=== PATIENT | female | born 1995 | race American Indian/Alaskan Native ===

== ENCOUNTER 2021-03-15 13:15 | Emergency (ER) | payer MEDICAID ==
[2021-03-15] MEDS ORDERED: miSOPROStol 25 MCG TAB VG ONE (15:01)
[2021-03-15 15:02] LABS: Basophils # (Auto) 0.1 K/mm3 (0.0-0.1); Basophils % (Auto) 0.6 % (0.0-1.8); Eosinophils # (Auto) 0.1 K/mm3 (0.0-0.4); Eosinophils % (Auto) 0.9 % (0.0-4.3); Hematocrit 30.6 % (30.3-42.9); Hemoglobin 10.7 gm/dl (10.1-14.3); Lymphocytes % (Auto) 11.6 % (13.4-35.0); Mean Corpuscular HGB Conc 35 % (30-34); Mean Corpuscular Volume 89 fl (79-97); Monocytes # (Auto) 0.4 K/mm3 (0.0-0.8); Monocytes % (Auto) 4.8 % (0.0-7.3); Platelet Count 301 K/mm3 (140-440); Red Blood Count 3.44 M/mm3 (3.65-5.03); Red Cell Distribution Width 14.4 % (13.2-15.2)
[2021-03-15] MEDS ORDERED: SODIUM CHLORIDE 0.9% 500 ML 500 ML IV ONE (15:04)
[2021-03-15 15:12] LABS: INR 0.99 (0.87-1.13)
[2021-03-15 15:13] LABS: Partial Thromboplastin Time 27.5 Sec. (24.2-36.6)
[2021-03-15 15:14] LABS: Alanine Aminotransferase 8 units/L (7-56); Albumin 4.1 g/dL (3.9-5); Blood Urea Nitrogen 19 mg/dL (7-17); Calcium 8.8 mg/dL (8.4-10.2); Hemolysis Index 3
[2021-03-15 15:17] LABS: BUN/Creatinine Ratio 32
[2021-03-15] MEDS ORDERED: miSOPROStol 200 MCG TAB VG ONE ×2 (16:00→21:00)
--- NOTE | 2021-03-15 16:06 | Emergency Department Report ---
ED General Adult HPI - General Chief complaint: Vaginal Bleeding Stated complaint: BLEEDING Time Seen by Provider: 03/15/21 14:21 Source: patient Mode of arrival: Wheelchair Limitations: No Limitations - History of Present Illness Initial comments: Patient is a 25-year-old female presents emergency room complaints of heavy vaginal bleeding that began early this morning. She states that she is having to change her pad approximately 5-6 times in an hour. Patient states that she had a medical pill on 03/02/2021. She states that this morning she went to follow-up for repeat ultrasound, she states while she was there she continued to have heavy bleeding and then began to feel lightheaded and was near syncope. She states that she was advised to report to the emergency room. She denies any abdominal pain, fever, vomiting, diarrhea, urinary symptoms, abnormal vaginal discharge. She states that she was approximately 7 weeks at the time of . No past medical history. No allergies medications. /P: 2/A: 1 - Related Data Previous Rx's Medication Instructions Recorded Last Taken Type Ibuprofen [Motrin 400 MG tab] 400 mg PO Q8H PRN #20 tablet 12/17/14 Unknown Rx methOCARBAMOL [Robaxin] 500 mg PO Q12H PRN #15 tab 12/17/14 Unknown Rx traMADoL [Ultram] 50 mg PO Q6HR PRN #15 tablet 12/17/14 Unknown Rx Doxycycline Hyclate [Doxycycline 100 mg PO BID 10 Days #20 tab 03/15/21 Unknown Rx Hyclate TAB] Allergies Allergy/AdvReac Type Severity Reaction Status Date / Time No Known Allergies Allergy Verified 03/15/21 14:12 ED Review of Systems ROS: Stated complaint: BLEEDING Other details as noted in HPI Comment: All other systems reviewed and negative ED Past Medical Hx - Past Medical History Additional medical history: NONE - Surgical History Additional Surgical History: NONE - Social History Smoking Status: Never Smoker Substance Use Type: None - Medications Home Medications: Home Medications Medication Instructions Recorded Confirmed Last Taken Type Ibuprofen [Motrin 400 MG tab] 400 mg PO Q8H PRN #20 tablet 12/17/14 Unknown Rx methOCARBAMOL [Robaxin] 500 mg PO Q12H PRN #15 tab 12/17/14 Unknown Rx traMADoL [Ultram] 50 mg PO Q6HR PRN #15 tablet 04/05/15 Unknown Rx Doxycycline Hyclate [Doxycycline 100 mg PO BID 10 Days #20 tab 03/15/21 Unknown Rx Hyclate TAB] ED Physical Exam - General Limitations: No Limitations General appearance: alert, in no apparent distress - Head Head exam: Present: atraumatic, normocephalic - Eye Eye exam: Present: normal appearance - ENT ENT exam: Present: mucous membranes moist - Respiratory Respiratory exam: Present: normal lung sounds bilaterally. Absent: respiratory distress, wheezes, rales, rhonchi, stridor, chest wall tenderness, accessory muscle use, decreased breath sounds, prolonged expiratory - Cardiovascular Cardiovascular Exam: Present: normal rhythm, tachycardia, normal heart sounds. Absent: systolic murmur, diastolic murmur, rubs, gallop - GI/Abdominal GI/Abdominal exam: Present: soft, normal bowel sounds. Absent: distended, tend erness, guarding, rebound, rigid - External exam: Present: other (special weapons and tactics officer: FRANCHESCA alfaro, there is blood present in the vaginal vault, one large 4 cm blood clot removed, there is moderate bleeding present) - Neurological Exam Neurological exam: Present: alert, oriented X3 - Psychiatric Psychiatric exam: Present: normal affect, normal mood - Skin Skin exam: Present: warm, dry, intact ED Course Vital Signs 03/15/21 03/15/21 03/15/21 14:16 14:50 15:01 Temperature 98.1 F Pulse Rate 147 H 105 H 74 Respiratory 24 20 Rate Blood Pressure 119/72 103/46 Blood Pressure [Left] O2 Sat by Pulse 98 100 Oximetry 03/15/21 03/15/21 03/15/21 15:15 15:31 15:45 Temperature Pulse Rate 73 75 76 Respiratory 16 11 L 12 Rate Blood Pressure 91/48 99/49 97/60 Blood Pressure [Left] O2 Sat by Pulse 100 100 100 Oximetry 03/15/21 03/15/21 03/15/21 17:03 17:21 17:31 Temperature Pulse Rate 64 Respiratory 16 Rate Blood Pressure 101/48 96/51 97/47 Blood Pressure [Left] O2 Sat by Pulse 100 85 100 Oximetry 03/15/21 03/15/21 17:45 17:54 Temperature Pulse Rate 65 65 Respiratory 16 16 Rate Blood Pressure 96/50 Blood Pressure 96/50 [Left] O2 Sat by Pulse 100 100 Oximetry - Consultations Consultation #1: 03/15/21 15:[address] Mahoney, TITLE EXAMINER regarding patient history and presentation, advised to give patient 800 mcg of Cytotec perirectally and to order a type and screen, labs, ultrasound 03/15/21 18:[address] Mahoney, TITLE EXAMINER, she is going to evaluate patient in the emergency department 03/15/21 20:45 Dr. Mahoney, TITLE EXAMINER evaluated patient at bedside and perform pelvic examination, she advised to order patient Cytotec for her to use at midnight tonight while at home, and to give patient doxycycline 100 mg twice daily for 10 days, and have patient follow-up with her TITLE EXAMINER next week. ED Medical Decision Making - Lab Data Result diagrams: 03/15/21 14:41 03/15/21 14:41 Lab Results 03/15/21 03/15/21 03/15/21 Range/Units 14:41 14:41 14:41 WBC 9.1 (4.5-11.0) K/mm3 RBC 3.44 L (3.65-5.03) M/mm3 Hgb 10.7 (10.1-14.3) gm/dl Hct 30.6 (30.3-42.9) % MCV 89 (79-97) fl MCH 31 (28-32) pg MCHC 35 H (30-34) % RDW 14.4 (13.2-15.2) % Plt Count 301 (140-440) K/mm3 Lymph % (Auto) 11.6 L (13.4-35.0) % [facility] % (Auto) 4.8 (0.0-7.3) % Eos % (Auto) 0.9 (0.0-4.3) % Baso % (Auto) 0.6 (0.0-1.8) % Lymph # (Auto) 1.0 L (1.2-5.4) K/mm3 [facility] # (Auto) 0.4 (0.0-0.8) K/mm3 Eos # (Auto) 0.1 (0.0-0.4) K/mm3 Baso # (Auto) 0.1 (0.0-0.1) K/mm3 Seg Neutrophils % 82.1 H (40.0-70.0) % Seg Neutrophils # 7.5 (1.8-7.7) K/mm3 PT (12.2-14.9) Sec. INR (0.87-1.13) APTT (24.2-36.6) Sec. Sodium 134 L (137-145) mmol/L Potassium 3.5 L (3.6-5.0) mmol/L Chloride 103.0 (98-107) mmol/L Carbon Dioxide 19 L (22-30) mmol/L Anion Gap 16 mmol/L BUN 19 H (7-17) mg/dL Creatinine 0.6 (0.6-1.2) mg/dL Estimated GFR > 60 ml/min BUN/Creatinine Ratio 32 % Glucose 122 H (65-100) mg/dL Calcium 8.8 (8.4-10.2) mg/dL Total Bilirubin 0.40 (0.1-1.2) mg/dL AST 15 (5-40) units/L ALT 8 (7-56) units/L Alkaline Phosphatase 39 (35-129) units/L Total Protein 7.2 (6.3-8.2) g/dL Albumin 4.1 (3.9-5) g/dL Albumin/Globulin Ratio 1.3 % HCG, Quant 4637 H (0-4) mIU/mL 03/15/21 Range/Units 14:41 WBC (4.5-11.0) K/mm3 RBC (3.65-5.03) M/mm3 Hgb (10.1-14.3) gm/dl Hct (30.3-42.9) % MCV (79-97) fl MCH (28-32) pg MCHC (30-34) % RDW (13.2-15.2) % Plt Count (140-440) K/mm3 Lymph % (Auto) (13.4-35.0) % [facility] % (Auto) (0.0-7.3) % Eos % (Auto) (0.0-4.3) % Baso % (Auto) (0.0-1.8) % Lymph # (Auto) (1.2-5.4) K/mm3 [facility] # (Auto) (0.0-0.8) K/mm3 Eos # (Auto) (0.0-0.4) K/mm3 Baso # (Auto) (0.0-0.1) K/mm3 Seg Neutrophils % (40.0-70.0) % Seg Neutrophils # (1.8-7.7) K/mm3 PT 13.6 (12.2-14.9) Sec. INR 0.99 (0.87-1.13) APTT 27.5 (24.2-36.6) Sec. Sodium (137-145) mmol/L Potassium (3.6-5.0) mmol/L Chloride (98-107) mmol/L Carbon Dioxide (22-30) mmol/L Anion Gap mmol/L BUN (7-17) mg/dL Creatinine (0.6-1.2) mg/dL Estimated GFR ml/min BUN/Creatinine Ratio % Glucose (65-100) mg/dL Calcium (8.4-10.2) mg/dL Total Bilirubin (0.1-1.2) mg/dL AST (5-40) units/L ALT (7-56) units/L Alkaline Phosphatase (35-129) units/L Total Protein (6.3-8.2) g/dL Albumin (3.9-5) g/dL Albumin/Globulin Ratio % HCG, Quant (0-4) mIU/mL Vital Signs 03/15/21 03/15/21 03/15/21 14:16 14:50 15:01 Temperature 98.1 F Pulse Rate 147 H 105 H 74 Respiratory 24 20 Rate Blood Pressure 119/72 103/46 Blood Pressure [Left] O2 Sat by Pulse 98 100 Oximetry 03/15/21 03/15/21 03/15/21 15:15 15:31 15:45 Temperature Pulse Rate 73 75 76 Respiratory 16 11 L 12 Rate Blood Pressure 91/48 99/49 97/60 Blood Pressure [Left] O2 Sat by Pulse 100 100 100 Oximetry 03/15/21 03/15/21 03/15/21 17:03 17:21 17:31 Temperature Pulse Rate 64 Respiratory 16 Rate Blood Pressure 101/48 96/51 97/47 Blood Pressure [Left] O2 Sat by Pulse 100 85 100 Oximetry 03/15/21 03/15/21 17:45 17:54 Temperature Pulse Rate 65 65 Respiratory 16 16 Rate Blood Pressure 96/50 Blood Pressure 96/50 [Left] O2 Sat by Pulse 100 100 Oximetry - EKG Data EKG shows normal: sinus rhythm, axis, intervals, QRS complexes Rate: tachycardia - EKG Data 03/15/21 21:22 no STEMI - Radiology Data Radiology results: report reviewed Ordering Physician: ADDY CASTELLON Date of Service: 03/15/21 Procedure(s): US transvaginal Accession Number(s): [id number] cc: ADDY CASTELLON ULTRASOUND PELVIS INDICATION / CLINICAL INFORMATION: had pill 03/02, now heavy bleeding. TECHNIQUE: Transabdominal and Transvaginal. Duplex Color Doppler used: Yes. COMPARISON: None available FINDINGS: UTERUS: - Appearance: No significant abnormality. - Size (cm): December 4 x 4.4 x 5.6 - Endometrial Complex (if present): Thickened and heterogeneous increased vascularity. Thickness in cm (if measured) = 1.4 - Mass or cyst: None. - Additional findings: None. RIGHT ADNEXA: No significant ovarian cyst or mass. Normal color Doppler blood flow. LEFT ADNEXA: No significant ovarian cyst or mass. Normal color Doppler blood flow. URINARY BLADDER: No significant abnormality. FREE FLUID: None. ADDITIONAL FINDINGS: None. IMPRESSION: 1. Thickened endometrial complex. It is difficult to distinguish a postoperative uterus containing clots from retained products of conception. Clinical correlation is recommended. Signer Name: Jarrett Love MD Signed: 03/15/2021 5:55 PM Workstation Name: [id number] Transcribed By: DT Dictated By: Alcon Love MD Electronically Authenticated By: Alcon Love MD Signed Date/Time: 03/15/211754 DD/ 51 TD/TT: - Medical Decision Making Patient is a 25-year-old female presents emergency room complaints of heavy vaginal bleeding that began early this morning. She states that she is having to change her pad approximately 5-6 times in an hour. Patient states that she had a medical pill on 03/02/2021. She states that this morning she went to follow-up for repeat ultrasound, she states while she was there she continued to have heavy bleeding and then began to feel lightheaded and was near syncope. She states that she was advised to report to the emergency room. She denies any abdominal pain, fever, vomiting, diarrhea, urinary symptoms, abnormal vaginal discharge. She states that she was approximately 7 weeks at the time of . No past medical history. No allergies medications. /P: 2/A: 1. Initial vitals with tachycardia which significantly improved upon repeat. On exam no abdominal tenderness, no guarding, no rebound, no rigidity, nor masses, no peritoneal signs, special weapons and tactics officer: FRANCHESCA alfaro, there is blood present in the vaginal vault, one large 4 cm blood clot removed, there is moderate bleeding present. Labs are stable. Pelvic ultrasound: 1. Thickened endometrial complex. It is difficult to distinguish a postoperative uterus containing clots from retained products of conception. Clinical correlation is recommended. Spoke with Dr. Mahoney, TITLE EXAMINER regarding patient history and presentation, advised to give patient 800 mcg of Cytotec perirectally and to order a type and screen, labs, ultrasound. Dr. Mahoney, TITLE EXAMINER evaluated patient at bedside and perform pelvic examination, she advised to order patient Cytotec for her to use at midnight tonight while at home, and to give patient doxycycline 100 mg twice daily for 10 days, and have patient follow-up with her TITLE EXAMINER next week. Patient was given her second dose of Cytotec to take home with her to perform at midnight. Discussed all results with patient and answer questions. Discussed strict return precautions. Patient given prescription for doxycycline. Advised patient Please place the Cytotec inside the rectum at 12 AM midnight tonight. Please take doxycycline as prescribed. Follow-up with your TITLE EXAMINER. Return to emergency room immediately for any new or symptoms. Critical care attestation.: If time is entered above; I have spent that time in minutes in the direct care of this critically ill patient, excluding procedure time. ED Disposition Clinical Impression: Retained products of conception Menorrhagia Qualifiers: Menorrhagia type: with irregular cycle Qualified Code(s): N92.1 - Excessive and frequent menstruation with irregular cycle Disposition: DC-01 TO HOME OR SELFCARE Is pt being admited?: No Does the pt Need Aspirin: No Condition: Stable Instructions: Abnormal Uterine Bleeding, [id number] Additional Instructions: Please place the Cytotec inside the rectum at 12 AM midnight tonight. Please take doxycycline as prescribed. Follow-up with your TITLE EXAMINER. Return to emergency room immediately for any new or symptoms. Prescriptions: Doxycycline Hyclate [Doxycycline Hyclate TAB] 100 mg PO BID 10 Days #20 tab Referrals: PRIMARY CARE,MD [Primary Care Provider] - 2-3 Days your, section chief [Other] - 2-3 Days Time of Disposition: 20:47 Print Language: LITHUANIAN
[2021-03-15 17:44] LABS: Bacteria,Urine 1+ /HPF (Negative); Bilirubin,Urine NEG (Negative); Blood,Urine LG (Negative); Color,Urine Red (Yellow); Mucus,Urine FEW /HPF; Urobilinogen,Urine < 2.0 mg/dL (<2.0)
[2021-03-15 17:47] LABS: WBC,Urine > 182.0 /HPF (0.0-6.0)
[2021-03-15 22:33] VITALS: BP 101/56
--- NOTE | 2021-03-21 10:39 | Electrocardiograph Report ---
[facility] Test Date: 2021-03-15 Test Time: 14:29:22 Pat Name: DENISE OSUNA Department: Room: Gender: F Retrieval Specialist: : [id number] Requested By: JAMAAL ROBERT Order Number: [id number] Reading MD: Robert Louie Measurements Intervals [place] Rate: 150 P: 85 MO: 142 QRS: 57 QRSD: 69 T: -66 QT: 295 QTc: 466 Interpretive Statements Sinus tachycardia No previous ECG available for comparison Electronically Signed On 03-21-2021 10:39:40 EDT by Robert Louie
== END 2021-03-15 21:20 | disposition home or self-care (01) ==
LOC: ED 13:15
DX: O03.4 Incomplete spontaneous abortion without complication (principal); N92.0 Excessive and frequent menstruation with regular cycle; Z79.1 Long term (current) use of non-steroidal anti-inflammatories (NSAID); Z79.899 Other long term (current) drug therapy
CPT/HCPCS: 36415; 76830; 76856; 80053; 81001; 84702; 85025; 85610; 85730; 86850; 86900; 86901; 87086; 93005; 96360; 96361; 99284; J7040